=== PATIENT | male | born 1975 | race Caucasian/White ===

== ENCOUNTER → 2017-02-21 | Outpatient (CLI) | payer BC ==
--- NOTE | 2017-02-21 12:40 | XR ---
EXAMINATION TYPE: XR foot complete RT DATE OF EXAM: 02/21/2017 COMPARISON: NONE HISTORY: Right foot pain TECHNIQUE: Three-view right foot FINDINGS: Small plantar calcaneal heel spur is present. Soft tissues are normal. No acute fractures o r dislocations are evident joint spaces are preserved. IMPRESSION: 1. Normal three-view right foot 2. Small plantar calcaneal heel spur
--- NOTE | 2017-02-21 12:40 | XR ---
EXAMINATION TYPE: XR calcaneus 2V RT DATE OF EXAM: 02/21/2017 COMPARISON: NONE HISTORY: Right foot pain plantar TECHNIQUE: Two-view calcaneus FINDINGS: Tiny plantar calcaneal heel spur is present. Soft tissues are normal. No acute osseous abno rmality is evident. IMPRESSION: 1. Small plantar calcaneal heel spur
== END ==
LOC: RADXRYALE 11:32
PROVIDERS: ATTEND Internal Medicine
DX: M77.31 Calcaneal spur, right foot (principal)

== ENCOUNTER → 2017-12-11 | Outpatient (CLI) | payer BC ==
--- NOTE | 2017-12-11 17:49 | PN ---
PROGRESS NOTE DATE OF SERVICE: 12/11/2017 This patient is a 42-year-old gentleman who has been followed in the sleep center for treatment of obstructive sleep apnea-hypopnea syndrome. The patient successfully continues to use his CPAP equipment every night without problems. No snoring with the machine. [place] Sleepiness Scale is 3, which is normal. He takes no medications. I checked his CPAP unit for the last year. He used it 325 nights out of 365 nights, and 301 nights for more than 4 hours; average 6 hours. Pressure is 7 cm of water. Leak is 5 L/minute, which is normal. Apnea-hypopnea index only 0.3. These are great numbers. PHYSICAL EXAMINATION: GENERAL A pleasant gentleman without distress. VITAL SIGNS: BP 118/72, HR 60, RR 16, height 5 feet 9-1/2 inches, weight 219, BMI 31.8, temperature 98.0, oxygen saturation at room air 97%. HEENT: PERRLA, EOMI. Evaluation of oropharynx showed tongue protrudes midline; extremely low position of soft palate. NECK: Supple. No JVD. Thyroid is not palpable. LUNGS: Clear to percussion and to auscultation. Good air exchange. No wheezing or rhonchi. HEART: S1, S2 regular. No murmurs, gallops or rubs. ABDOMEN: Soft and nontender. Bowel sounds are present. No organomegaly appreciated. EXTREMITIES : No clubbing or cyanosis. MANAGER ORANGE: Awake, alert, and oriented X3. Cranial nerves 2 to 7 intact. There is no fasciculation or atrophy. noted. No focal deficits observed. IMPRESSION: 1. Obstructive sleep apnea-hypopnea syndrome, under full control with CPAP. The patient is benefitting from treatment, demonstrating great compliance. 2. 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 3. Obesity. 4. History of episodes of anxiety. PLAN: 1. Patient will continue treatment with CPAP every night for the whole night. 2. Losing weight. 3. Sleep hygiene with regular time in bed for at least 8 hours. 4. No driving if feeling any sleepiness. 5. Prescription for all necessary CPAP supplies, including mask of patient's choice, tube, filters. Thank you very much for allowing me to participate in the management of your patient. Sincerely, Jian Morillo MD, PhD, FAASM Diplomat of [employer] Social Science Teacher of [facility] MMMICHAELLEL / IJN: [id number] /
== END | disposition home or self-care (01) ==
LOC: SLEEP 15:36
PROVIDERS: ATTEND Internal Medicine
DX: G47.33 Obstructive sleep apnea (adult) (pediatric) (principal); E66.9 Obesity, unspecified; Z86.59 Personal history of other mental and behavioral disorders; Z99.89 Dependence on other enabling machines and devices; Z68.31 Body mass index [BMI] 31.0-31.9, adult

== ENCOUNTER → 2018-12-28 | Outpatient (CLI) | payer BC ==
--- NOTE | 2018-12-29 08:11 | XR ---
EXAMINATION TYPE: XR lumbosacral spine min 4V DATE OF EXAM: 12/28/2018 CLINICAL HISTORY: Perineal numbness. No known injury. TECHNIQUE: Frontal, lateral, and oblique images of the lumbar spine are obtained. COMPARISON: None FINDINGS: There are 6 lumbar type vertebral bodies identified with sacralization of the L6 vertebral body and hypoplastic 12th ribs from the L1 vertebral body. There is grade 1 anterolisthesis of L5 on L6. The lumbar spine shows satisfactory alignment without evidence of acute fracture or dislocation . Vertebral body heights and disk space heights are within normal limits. The oblique images demons trate pars intraarticularis defects at L5 L6. The overlying soft tissue appears unremarkable. IMPRESSION: No acute fracture or in the lumbar spine. Incidentally noted 6 lumbar type vertebral bod ies with sacralization of L6 and grade 1 anterolisthesis of L5 on L6 secondary to pars interarticular is defects.
== END | disposition home or self-care (01) ==
LOC: RADXRMAIN 16:58
PROVIDERS: ATTEND Internal Medicine
DX: M43.16 Spondylolisthesis, lumbar region (principal); M43.27 Fusion of spine, lumbosacral region
CPT/HCPCS: 72110

== ENCOUNTER → 2019-03-25 | Outpatient (CLI) | payer BC ==
--- NOTE | 2019-03-25 17:22 | PN ---
PROGRESS NOTE DATE OF SERVICE: 03/25/2019 This patient is a 43-year-old gentleman who has been followed in the sleep center for treatment of obstructive sleep apnea-hypopnea syndrome. The patient continues to use CPAP equipment every night for the whole night without significant problems related to mask fitting, pressure or humidification. [place] Sleepiness Scale today is only 1. I checked the patient's CPAP unit. CPAP pressure is 7 cm of water. Usage is 29/30 nights, with 24/30 nights for more than 4 hours with average usage 5.4 hours per night. Leak is only 6 L/minute, which is perfect. Apnea-hypopnea index is only 0.2 per hour, which is absolutely perfect. MEDICATIONS: No prescribed medications. PHYSICAL EXAMINATION: GENERAL: A pleasant patient in no distress. VITAL SIGNS: BP 124/63, HR 64, RR 16, height 5 feet 9-1/2 inches, weight 214, body mass index 31.1, temperature 97.6, oxygen saturation at room air 96%. HEENT: PERRLA, EOMI. Evaluation of oropharynx showed tongue protrudes midline. Extremely low position of soft palate. Mallampati IV. NECK: Supple. No JVD. Thyroid is not palpable. LUNGS: Clear to percussion and to auscultation. Good air exchange. No wheezing or rhonchi. HEART: S1, S2 regular. No murmurs, gallops or rubs. ABDOMEN: Soft and nontender. Bowel sounds are present. No organomegaly. EXTREMITIES: No clubbing or cyanosis. CASE LINER: Awake, alert, and oriented X3. Cranial nerves 2 to 7 intact. There is no fasciculation or atrophy. noted. No focal deficits observed. IMPRESSION: 1. Obstructive sleep apnea-hypopnea syndrome. Patient demonstrated great compliance with treatment, benefitting from treatment. 2. Mild obesity; body mass index 31.1. 3. Patient continues to be on a swing shift work schedule. 4. History of episodes of anxiety. PLAN: 1. Patient will continue to use CPAP equipment every night for the whole night. 2. Sleep hygiene with regular time in bed for at least 8 hours. 3. No driving if feeling any sleepiness. 4. Prescription for all necessary CPAP supplies, including mask, tube, filters. 5. Follow-up in one year, or earlier if patient has any problems. Thank you very much for allowing me to participate in the management of your patient. Sincerely, Jian Morillo MD, PhD, FAASM Diplomat of [place] [employer] [place] [employer] Artificial [employer]eding Distributor of [facility] [place] MMHERBIE / SCOTT: [id number] /
== END | disposition home or self-care (01) ==
LOC: SLEEP 14:01
PROVIDERS: ATTEND Internal Medicine
DX: G47.33 Obstructive sleep apnea (adult) (pediatric) (principal); E66.9 Obesity, unspecified; Z68.31 Body mass index [BMI] 31.0-31.9, adult; Z86.59 Personal history of other mental and behavioral disorders; Z99.89 Dependence on other enabling machines and devices

== ENCOUNTER → 2020-01-28 | Outpatient (CLI) | payer BC | END | disposition home or self-care (01) | LOC: LABWHC1 13:10 | PROVIDERS: ATTEND Internal Medicine | DX: R42 Dizziness and giddiness (principal) | CPT/HCPCS: U0003; C9803 ==

== ENCOUNTER → 2020-07-10 | Outpatient (CLI) | payer BC | END | disposition home or self-care (01) | LOC: RADMRIMAIN 19:02 | PROVIDERS: ATTEND Orthopaedic Surgery | DX: Z53.9 Procedure and treatment not carried out, unspecified reason (principal) ==

== ENCOUNTER → 2020-07-13 | Outpatient (CLI) | payer BC ==
--- NOTE | 2020-07-13 17:29 | MR ---
EXAMINATION TYPE: MR knee LT wo con DATE OF EXAM: 07/13/2020 COMPARISON: Outside left knee x-ray June 13, 2020 HISTORY: Left knee pain and swelling for 4 months. TECHNIQUE: Multiplanar, multisequence imaging of the left knee is performed without IV contrast. FINDINGS: MEDIAL MENISCUS: Medial extrusion medial meniscus on coronal images. Posterior horn is truncated appe arance with abnormal signal extending to articular surface, there is also vertical abnormal signal in the central body extending to articular surface. LATERAL MENISCUS: Anterior and posterior horns are intact without tear. CRUCIATE LIGAMENTS: The anterior and posterior cruciate ligaments are intact and unremarkable. COLLATERAL LIGAMENTS: The medial collateral ligament and lateral collateral ligament complex are inta ct and unremarkable. EXTENSOR MECHANISM: Visualized quadriceps and patellar tendons are intact. EFFUSION: Small suprapatellar joint effusion. POPLITEAL CYST: No popliteal/lawler cyst. TRICOMPARTMENT SPACES: Mild to moderate tricompartment joint space loss with mild spurring CARTILAGE: Some chondromalacia patella with fissuring of articular cartilage along the posterior bagley llar pole. No full thickness loss. BONE MARROW SIGNAL: No focal abnormal marrow signal is appreciated. OTHER: No additional significant abnormality is appreciated. IMPRESSION: 1. Complex full-thickness tear posterior horn medial meniscus extending into central body. 2. Mild to moderate tricompartment degenerative changes as detailed above. 3. Small suprapatellar joint effusion.
== END | disposition home or self-care (01) ==
LOC: RADMRIMAIN 16:30
PROVIDERS: ATTEND Orthopaedic Surgery
DX: S83.242A Other tear of medial meniscus, current injury, left knee, initial encounter (principal); M17.12 Unilateral primary osteoarthritis, left knee

== ENCOUNTER → 2020-08-10 | Outpatient (CLI) | payer BC ==
[2020-08-10 13:49] LABS: Basophils # (A) 0.1 k/uL (0-0.2); Basophils % (A) 1 %; Eosinophils # (A) 0.2 k/uL (0-0.7); Eosinophils % (A) 5 %; HCT 47.7 % (39.0-53.0); HGB 16.2 gm/dL (13.0-17.5); Lymphocytes # (A) 1.7 k/uL (1.0-4.8); Lymphocytes % (A) 34 %; MCH 30.4 pg (25.0-35.0); MCHC 33.9 g/dL (31.0-37.0); MCV 89.6 fL (80.0-100.0); Mean Platelet Volume 7.7; Monocytes # (A) 0.4 k/uL (0-1.0); Monocytes % (A) 8 %; Neutrophils # (A) 2.6 k/uL (1.3-7.7); Neutrophils % (A) 50 %; Platelet Count 243 k/uL (150-450); RBC 5.33 m/uL (4.30-5.90); RDW 12.4 % (11.5-15.5); WBC 5.1 k/uL (3.8-10.6)
[2020-08-10 13:56] LABS: Potassium 4.5 mmol/L (3.5-5.1)
== END | disposition home or self-care (01) ==
LOC: LABPAT 13:02
PROVIDERS: ATTEND Orthopaedic Surgery
DX: M23.92 Unspecified internal derangement of left knee (principal)
CPT/HCPCS: 36415; 80051; 85025

== ENCOUNTER 2020-08-16 07:17 | Day surgery (SDC) | payer BC ==
[2020-08-11 09:53] VITALS: BMI 33.0
--- NOTE | 2020-08-15 15:00 | HP ---
HISTORY AND PHYSICAL Surgery is scheduled for 08/16/2020. Joseph Saldivar is a 44-year-old gentleman seen with progressive left knee pain. Options for treatment were discussed with him. He elected to proceed with left knee arthroscopy. Consent was obtained. PAST MEDICAL HISTORY: Noncontributory. PAST SURGICAL HISTORY: Eye surgery. DAILY MEDICATIONS: None. ALLERGIES: PENICILLIN. SOCIAL HISTORY: He denies tobacco use. PHYSICAL EVALUATION LEFT KNEE: Range of motion is 0-130. There is a mild to moderate effusion. Tenderness along the medial joint line. Positive medial Emiliano's. Ligaments stable. Hip rotation without pain. Distal neurovascular exam intact. Left knee radiographs reveal mild osteoarthritis. Left knee MRI revealed a complex medial meniscal tear. IMPRESSION: Internal derangement, left knee with medial meniscal tear. PLAN: Left knee arthroscopy with partial meniscectomy and debridement. MMODL / IJN: [id number] /
[~2020-08-16 07:17] MED LIST: CLINDAMYCIN 900 MG in DEXTROSE 5% IN WATER 50 ML IVPB PRN; DEXAMETHASONE SOD PHOSPHATE 4 MG/ML 1 ML VIAL IV ONE; LACTATED RINGERS 1,000 ML IV SCH; LIDOCAINE 1% (10MG/ML) FOR IV START INTRADERMA PRN
[2020-08-16] MEDS ORDERED: ONDANSETRON 4 MG/2 ML VIAL ONE (07:51)
[2020-08-16] MEDS ORDERED: MIDAZOLAM 2 MG/2 ML VIAL ONE (08:35)
[2020-08-16] MEDS ORDERED: BUPIVACAINE (PF) 0.25% 30 ML VIAL SQ ONE ×2 (08:35→09:12)
[2020-08-16] MEDS ORDERED: fentaNYL (PF) 50 MCG/ML 2 ML AMP ONE (08:35)
[2020-08-16] MEDS ORDERED: PROPOFOL 10 MG/ML 20 ML VIAL IV ONE (08:35)
[2020-08-16] MEDS ORDERED: LIDOCAINE 1% INJ 10MG/ML (20 ML MDV) ONE (08:35)
[2020-08-16] MEDS: MEPERIDINE 50 MG/ML SYRINGE IVP ONE ×2 (09:29→09:35)
--- NOTE | 2020-08-16 09:29 | P.OP ---
Date of Procedure: 08/16/20 Preoperative Diagnosis: Internal derangement left knee Postoperative Diagnosis: 1. Tear medial meniscus left knee 2. Reactive synovitis medial, lateral and suprapatellar compartments left knee Procedure(s) Performed: 1. Arthroscopic partial medial meniscectomy left knee 2. Arthroscopic partial synovectomy medial, lateral and suprapatellar compartments left knee Anesthesia: MARK, local Surgeon: Juan J Gomez Estimated Blood Loss (ml): 8 Pathology: none sent Condition: stable Disposition: PACU Indications for Procedure: 44-year-old patient seen with progressive left knee pain. After treatment options were discussed, he elected to proceed with arthroscopy. Operative Findings: See description of procedure Description of Procedure: Patient was taken to the operative suite. Patient underwent a general anestheti c by the department of anesthesia. Patient was given preoperative antibiotics. The left lower extremity was placed in a well-padded arthroscopic leg key. The left leg was prepped and draped in the normal sterile orthopedic fashion. A lateral parapatellar and suprapatellar incision was made. Trochars were inserted. Arthroscopy was initiated. Suprapatellar pouch revealed diffuse thick reactive synovitis. The patellofemoral joint appeared to articulate congruently. There as grade 1 chondromalacia with no tears present. The scope was guided into the medial gutter. No loose bodies or plica were identified. The scope was then guided into the medial compartment. A medial parapatellar incision was made. Trocar inserted followed by probe. There was a complex tear posterior horn medial meniscus. There was thick reactive synovitis anteriorly. There was no significant chondromalacia present. I performed a partial medial meniscectomy getting down to stable meniscal tissue. I performed a partial synovectomy decompressing the thick reactive synovitis anteriorly. The shaver was removed. The residual meniscus was stable. There was good decompression of the synovitis. Scope and probe were then guided into the intercondylar notch. Cruciates were identified, probed and found to be stable. The scope and probe were then guided into lateral compartment. The lateral meniscus was probed and found to be stable. There was no significant chondromalacia present. There was some thick reactive synovitis anteriorly. I introduced a motorized shaver and performed a partial synovectomy decompressing the thick reactive synovitis. The shaver was removed. There was good decompression of the synovitis. The scope was in guided back into the suprapatellar compartment. I introduced a motorized shaver into the suprapatellar compartment. I debrided some piecemeal fragments of meniscus I encountered. I performed a partial synovectomy. Shaver was removed. There was good decompression of the synovitis. I took one more look around the entire knee, no residual debris. Instruments were now removed from the joint. The joint was infiltrated with .25% Marcaine. Steri-Strips were applied to the portal sites. Sterile dressings were applied. The patient was placed into a KIMI hose. No tourniquet was utilized. The patient was awakened, transferred to a bed and taken to recovery stable satisfactory condition.
[2020-08-16 09:32] VITALS: TEMP 98.2
[2020-08-16 09:33] VITALS: RESP 16
[2020-08-16] MEDS ORDERED: KETOROLAC 15 MG/ML 1 ML VIAL IVP ONE (09:38)
[2020-08-16] MEDS: HYDROmorphone 0.5 MG/0.5 ML SYRINGE IVP PRN ×2 (09:46→09:52)
[2020-08-16] MEDS ORDERED: HYDROcodone/APAP 7.5-325MG 1 EACH TAB ONE (10:28)
[2020-08-16] MEDS ORDERED: HYDROcodone/APAP 7.5-325MG 1 EACH TAB PO ONE (10:28)
[2020-08-16 10:45] VITALS: BP 133/69; PULSE 71
== END 2020-08-16 11:23 | disposition home or self-care (01) ==
LOC: OR 07:17
PROVIDERS: ATTEND Orthopaedic Surgery
DX: M23.204 Derangement of unspecified medial meniscus due to old tear or injury, left knee (principal); M65.862 Other synovitis and tenosynovitis, left lower leg; M17.12 Unilateral primary osteoarthritis, left knee; M22.42 Chondromalacia patellae, left knee; Z98.890 Other specified postprocedural states; R01.1 Cardiac murmur, unspecified; G47.33 Obstructive sleep apnea (adult) (pediatric); Z99.89 Dependence on other enabling machines and devices; Z88.0 Allergy status to penicillin
CPT/HCPCS: 29881; 29876; J2250; J1100; J2175; J2405; J2001; J3010; J1885; J2704; J1170